=== PATIENT | male | born 1970 | race Caucasian/White ===

== ENCOUNTER 2017-01-09 22:41 | Emergency (ER) | payer MEDICARE, OTHER ==
[2017-01-10] MEDS ORDERED: DIPHENHYDRAMINE HCL 50 MG CAPSULE ONE (00:54)
[2017-01-10] MEDS ORDERED: IBUPROFEN 800 MG TABLET ONE (00:54)
== END 2017-01-10 01:08 | disposition home or self-care (01) ==
LOC: ED 22:41
DX: H92.03 Otalgia, bilateral (principal)
CPT/HCPCS: 99282; 99283; A9270 ×2